=== PATIENT | male | born 1950 | race Caucasian/White ===

== ENCOUNTER → 2019-01-18 | Outpatient (CLI) | payer MEDICARE, OTHER ==
[~2019-01-18] MED LIST: NONE PER PT
== END | disposition home or self-care (01) ==
LOC: STAR 09:08
PROVIDERS: ATTEND Orthopaedic Surgery
DX: Z01.818 Encounter for other preprocedural examination (principal); I45.10 Unspecified right bundle-branch block; M17.0 Bilateral primary osteoarthritis of knee; R73.09 Other abnormal glucose; R79.1 Abnormal coagulation profile; Z79.1 Long term (current) use of non-steroidal anti-inflammatories (NSAID)
CPT/HCPCS: 36415; 85730; 87081; 87806; 93005; G0475

== ENCOUNTER 2019-01-29 06:45 | Observation (INO) | payer MEDICARE ==
[~2019-01-29] VITALS: Ht 182.9 cm; Wt 106.8 kg
[~2019-01-29 06:45] MED LIST changes: +EPINEPHRINE 1 MG/ML, 1ML ONE; +KETOROLAC 60 MG/2 ML ONE; +ROPIvacaine/PF 0.2%, 20 ML ONE; +SODIUM CHLORIDE 0.9% 50 ML ONE; +TRANEXAMIC ACID 100 MG/ML, 10ML ONE
[2019-01-29] MEDS ORDERED: LACTATED RINGERS 1,000 ML IV SCH (07:08)
[2019-01-29] MEDS ORDERED: GABAPENTIN 300 MG CAPSULE PO ONE ×2 (07:30→08:30)
[2019-01-29] MEDS ORDERED: ACETAMINOPHEN 500 MG TABLET PO ONE ×2 (07:30→08:30)
[2019-01-29 07:35] VITALS: BP 153/90
[2019-01-29] MEDS ORDERED: FENTANYL PF 250 MCG/5ML ONE (08:06)
[2019-01-29] MEDS ORDERED: MIDAZOLAM 1 MG/ML, 2ML ONE (08:06)
[2019-01-29] MEDS ORDERED: ROCURONIUM 10MG/ML,5ML ONE (08:08)
[2019-01-29] MEDS ORDERED: DEXAMETHASONE 4 MG/ML, 5ML ONE (08:08)
[2019-01-29] MEDS ORDERED: CEFAZOLIN 1,000 MG ONE (08:08)
[2019-01-29] MEDS ORDERED: PROPOFOL 10 MG/ML, 20ML ONE (08:08)
[2019-01-29] MEDS ORDERED: ONDANSETRON 2MG/ML, 2ML ONE (08:08)
[2019-01-29] MEDS ORDERED: WATER-INJECTION,STERILE 10 ML IV ONE (08:08)
[2019-01-29] MEDS ORDERED: LIDOCAINE-MPF 2% ,5ML ONE (08:08)
[2019-01-29] MEDS ORDERED: BUPIVACAINE/PF 0.25% ONE (08:10)
[2019-01-29] MEDS ORDERED: HYDROmorphone 1 MG/ML, 1ML INJ IV PRN (09:00)
[2019-01-29] MEDS ORDERED: TRANEXAMIC ACID 1,000 MG in SODIUM CHLORIDE 0.9% 100 ML IVPB ONE (09:00)
[2019-01-29] MEDS ORDERED: PROMETHAZINE 25 MG/ML, 1ML IM PRN (09:00)
[2019-01-29] MEDS: DOCUSATE 100 MG CAPSULE PO SCH ×2 (09:00→21:20)
[2019-01-29] MEDS ORDERED: ACETAMINOPHEN 650 MG/20.3 ML UDC PO PRN (09:00)
[2019-01-29] MEDS ORDERED: ALUMINUM/MAG/SIMETHICONE 30 ML UDC PO PRN (09:00)
[2019-01-29] MEDS ORDERED: MAGNESIUM HYDROXIDE 8%, 30ML UDC PO PRN (09:00)
[2019-01-29] MEDS ORDERED: OXYcodone IR 5MG TABLET PO PRN (09:00)
[2019-01-29] MEDS ORDERED: PROMETHAZINE 12.5 MG SUPP PR PRN (09:00)
[2019-01-29] MEDS ORDERED: ONDANSETRON 2MG/ML, 2ML IV PRN (09:00)
[2019-01-29] MEDS ORDERED: ONDANSETRON 4 MG TABLET PO PRN (09:00)
[2019-01-29] MEDS ORDERED: DIPHENHYDRAMINE 50 MG CAPSULE PO PRN (09:00)
[2019-01-29] MEDS ORDERED: SENNA/DOCUSATE TABLET PO PRN (09:00)
[2019-01-29] MEDS ORDERED: MEPERIDINE/PF 50 MG/ML ONE (10:07)
[2019-01-29] MEDS ORDERED: PROMETHAZINE 25 MG/ML, 1ML IV PRN (10:30)
[2019-01-29] MEDS ORDERED: MEPERIDINE/PF 25MG/0.5ML IVPush PRN (10:30)
[2019-01-29] MEDS ORDERED: OXYcodone 5 MG/5 ML ORAL.SOL UDC PO PRN (10:30)
[2019-01-29] MEDS ORDERED: hydrALAzine 20 MG/ML, 1ML IV PRN (10:30)
[2019-01-29] MEDS ORDERED: HALOPERIDOL 5 MG/ML IV PRN (10:30)
[2019-01-29] MEDS ORDERED: FENTANYL PF 100 MCG/2ML ONE ×3 (10:48→11:54)
[2019-01-29] MEDS ORDERED: HYDROmorphone 1 MG/ML, 1ML INJ ONE ×2 (10:54→11:27)
[2019-01-29] MEDS ORDERED: OXYcodone 5 MG/5 ML ORAL.SOL UDC ONE (10:55)
[2019-01-29] MEDS: HYDROmorphone 2 MG/ML, 1ML IVPush PRN ×5 (10:59→11:49)
[2019-01-29] MEDS: FENTANYL PF 100 MCG/2ML IV PRN ×3 (11:12→11:57)
[2019-01-29 12:30] VITALS: BP 124/72
[2019-01-29] MEDS: D5%-0.45NACL+KCL 20MEQ 1,000 ML IV SCH ×2 (14:29→21:20)
[2019-01-29] MEDS ORDERED: PHENYLEPHRINE 10 MG/ML ONE (16:07)
[2019-01-29] MEDS ORDERED: KETAMINE 10 MG/ML, 20ML ONE (16:07)
[2019-01-29] MEDS: CEFAZOLIN PMX 1GM/50ML 50 ML IVPB SCH (18:42)
[2019-01-29] MEDS: TAMSULOSIN 0.4 MG CAP.ER.24H PO SCH (18:44)
[2019-01-29 20:17] VITALS: BP 123/67
[2019-01-29 23:48] VITALS: BP 106/56
[2019-01-30] MEDS: CEFAZOLIN PMX 1GM/50ML 50 ML IVPB SCH (02:21)
[2019-01-30 03:52] VITALS: BP 108/58
[2019-01-30] MEDS: D5%-0.45NACL+KCL 20MEQ 1,000 ML IV SCH (05:00)
[2019-01-30] MEDS ORDERED: DEXAMETHASONE 4 MG/ML, 1ML IVPush SCH (06:00)
[2019-01-30] MEDS ORDERED: ASPIRIN 81 MG TABLET EC PO SCH (06:00)
[2019-01-30 06:38] VITALS: BP 113/63
[2019-01-30] MEDS: DOCUSATE 100 MG CAPSULE PO SCH (09:11)
[2019-01-30] MEDS: TAMSULOSIN 0.4 MG CAP.ER.24H PO SCH (09:11)
[2019-01-30] MEDS ORDERED: ASPI81TA45 PO (09:34)
[2019-01-31] MEDS ORDERED: KETOROLAC 30 MG/1 ML IV SCH ×2 (09:00)
== END 2019-01-30 12:22 | disposition home or self-care (01) ==
LOC: OUT 06:45 → ORIP 08:53 → 4NOR 12:31 → DCLOUNGE 01-30 12:06
PROVIDERS: ADMIT Orthopaedic Surgery; ATTEND Orthopaedic Surgery
DX: M17.12 Unilateral primary osteoarthritis, left knee (principal)
CPT/HCPCS: 27447; 36415; 73560; 85014; 85018; 96365; 96366; 96375; 97116; 97150; 97161; 97166; C1713; C1776; G0378; J0171; J0690; J1100; J1170; J1885; J2175; J2250; J2370; J2405; J2704; J2795; J3010; J3480; J3490; J7120